=== PATIENT | female | born 1960 | race Hispanic/Latino ===

== ENCOUNTER → 2025-03-18 | Outpatient (REF) | payer MEDICARE | LOC: US 06:50 | PROVIDERS: ATTEND Nurse Practitioner Family | DX: R10.9 Unspecified abdominal pain (principal) | CPT/HCPCS: 76700; 76856 ==

== ENCOUNTER → 2025-04-06 | Outpatient (REF) | payer MEDICARE ==
[~2025-04-06] MED LIST: ASPIRIN81 MG PO; BREYNA 160-4.10.3 GM; DULOXETINE HCL30 MG PO; IMITREX25 MG PO; LINZESS290 MCG PO; MELOXICAM7.5 MG PO; PANTOPRAZOLE SO40 MG PO; VENTOLIN HFA18 GM INH
[2025-04-06 13:33] LABS: BASOPHILS % 0.6 % (0.0-1.0); EOSINOPHILS % 1.9 % (0.0-6.0); LYMPHOCYTES % 22.7 % (18.0-39.1); MONOCYTES % 5.8 % (4.4-11.3); NEUTROPHILS % 68.8 % (38.7-80.0); RED CELL DISTRIBUTION WIDTH 13.3 % (11.7-14.4)
== END ==
LOC: RAD 12:00 → EDSTATUS 04-12 15:30
PROVIDERS: ATTEND Internal Medicine Gastroenterology
DX: Z01.810 Encounter for preprocedural cardiovascular examination (principal); Z01.812 Encounter for preprocedural laboratory examination; K21.9 Gastro-esophageal reflux disease without esophagitis; K62.5 Hemorrhage of anus and rectum; Z80.0 Family history of malignant neoplasm of digestive organs; Z72.0 Tobacco use
CPT/HCPCS: 36415; 85025; 93005

== ENCOUNTER → 2025-04-07 | Outpatient (REF) | payer MEDICARE ==
[~2025-04-07] MED LIST changes: -DULOXETINE HCL30 MG PO
== END ==
LOC: CARD 09:50 → EDSTATUS 10:00
PROVIDERS: ATTEND Anesthesiology
DX: I34.0 Nonrheumatic mitral (valve) insufficiency (principal); I07.1 Rheumatic tricuspid insufficiency
CPT/HCPCS: 93306